=== PATIENT | female | born 1975 ===

== ENCOUNTER 2017-12-19 20:18 | Emergency (ER) | payer OTHER ==
[2017-12-19 20:29] VITALS: RESP 16; TEMP 97.9; O2SAT 99
--- NOTE | 2017-12-19 20:56 | ED PDOC ---
HPI: Chest Pain Time Seen by Provider: 12/19/17 20:20 Chief Complaint (Nursing): Chest Pain Chief Complaint (Provider): Chest Pain History Per: Patient History/Exam Limitations: no limitations Onset/Duration Of Symptoms: Hrs (x1 hour) Current Symptoms Are (Timing): Better Associated Symptoms: denies: Nausea, Dyspnea, Diaphoresis Additional Complaint(s): 42 y/o male presents to the ED complaining of sudden onset of R chest pain, radiating to the right arm x 1 hour. Patient was doing her routine in the kitchen while this happened. Report that she had a similar episode before and was seen and cleared by translator and interpreter. Denies neck pain, diaphoresis, vomiting, shortness of breath or any further medical complaints. Past Medical History Reviewed: Historical Data, Nursing Documentation, Vital Signs Vital Signs: Last Vital Signs Temp 97.9 F 12/19/17 20:24 Pulse 81 12/20/17 01:30 Resp 16 12/20/17 01:18 BP 101/66 12/20/17 01:18 Pulse Ox 99 12/20/17 01:30 - Medical History Other PMH: Vertigo - Surgical History Surgical History: No Surg Hx - Family History Family History: States: [place] - Social History Current smoker - smoking cessation education provided: No Alcohol: None Drugs: Denies - Allergies Allergies/Adverse Reactions: Allergies Allergy/AdvReac Type Severity Reaction Status Date / Time No Known Allergies Allergy Verified 12/19/17 20:29 KATRIN Risk Score for UA/NSTEMI - KATRIN Risk Score Age > 64: NO 3 or more CAD Risk Factors: NO Known CAD (Stenosis greater than 50%): NO Aspirin use in past 7 days: NO Severe Angina: NO EKG ST changes greater than 0.5mm: NO Positive Cardiac Marker: NO KATRIN Score: 0 Risk %: 5% Review of Systems ROS Statement: Except As Marked, All Systems Reviewed And Found Negative (As per HPI otherwise negative) Constitutional: Negative for: Other (diaphoresis) Cardiovascular: Positive for: Chest Pain Respiratory: Negative for: Shortness of Breath Gastrointestinal: Negative for: Vomiting Musculoskeletal: Negative for: Neck Pain Physical Exam - Reviewed Nursing Documentation Reviewed: Yes Vital Signs Reviewed: Yes - Physical Exam Appears: Positive for: Non-toxic, No Acute Distress Head Exam: Positive for: ATRAUMATIC, NORMAL INSPECTION, NORMOCEPHALIC Skin: Positive for: Normal Color, Warm, Dry Eye Exam: Positive for: EOMI, Normal appearance, PERRL ENT: Positive for: Normal ENT Inspection Neck: Positive for: Normal, Painless ROM, Supple Cardiovascular/Chest: Positive for: Regular Rate, Rhythm. Negative for: Murmur Respiratory: Positive for: Normal Breath Sounds. Negative for: Accessory Muscle Use, Respiratory Distress Gastrointestinal/Abdominal: Positive for: Normal Exam, Soft. Negative for: Tenderness Back: Positive for: Normal Inspection Extremity: Positive for: Normal ROM. Negative for: Deformity Neurologic/Psych: Positive for: Alert, Oriented (x3) - Laboratory Results Result Diagrams: 12/19/17 21:20 12/19/17 21:20 - ECG ECG: Positive for: Interpreted By Me, Viewed By Me Rate: 81 O2 Sat by Pulse Oximetry: 99 (RA) Pulse Ox Interpretation: Normal Medical Decision Making Medical Decision Making: Time: 20:49 Initial Impression: Chest pain rule out cardiac etiology Plan: CMP Troponin I CBC w/ differential D Dimer Prothrombin time Chest x-ray Toradol 30mg IV Reevaluation Time: 0000 Patient feels better and labs are normal. pt is pain free, comfortable, joking around in her room. A repeat Troponin test performed. Chest Xray preliminary readings are negative. Repeat Troponin is negative. Patient ready for discharged. Clinical Impression: Atypical Chest Pain Upon provider evaluation patient is medically stable, and requires no further treatment in the ED at this time. Patient will be discharged. Counseling was provided and all questions were answered regarding diagnosis and need for follow up with PMD. There is agreement to discharge plan. Return if symptoms persist or worsen. Scribe Attestation: Documented by Toni De La Garza and Kathy Cochran acting as scribes for Yaneth Sanders MD. Scribe Attestation: All medical record entries made by the Scribe were at my direction and personally dictated by me. I have reviewed the chart and agree that the record accurately reflects my personal performance of the history, physical exam, medical decision making, and the department course for this patient. I have also personally directed, reviewed, and agree with the discharge instructions and disposition. Disposition - Clinical Impression Clinical Impression: Atypical chest pain - Patient ED Disposition Is Patient to be Admitted: No Counseled Patient/Family Regarding: Studies Performed, Need For Followup - Disposition Referrals: [facility] [Outside] [facility] [Outside] Disposition: Routine/Home Disposition Time: 23:00 Condition: IMPROVED Additional Instructions: follow up with your primary doctor in 1-2 days for reevaluation and further management/workup return to the ED With any worsening or concerning symptoms such as chest pain and shortness of breath Instructions: Chest Pain, Chest Pain (DC) Forms: [facility] ([place]), [facility] ED School/Work Excuse
[2017-12-19 21:42] LABS: BASO # 0.1 K/uL (0.0-0.2); BASO % 1.6 % (0.0-2.0); EOS # 0.5 K/uL (0.0-0.7); EOS % 6.9 % (0.0-4.0); HEMOGLOBIN 13.1 g/dL (12.0-16.0); LYMPH # 2.2 K/uL (1.0-4.3); LYMPH % 31.9 % (20.0-40.0); MEAN CELL VOLUME 88.7 fl (81.0-99.0); MEAN CORPUSCULAR HEMOGLOBIN 30.2 pg (27.0-31.0); MEAN PLATELET VOLUME 8.3 fl (7.2-11.7); MONO # 0.6 K/uL (0.0-0.8); MONO % 8.7 % (0.0-10.0); NEUT # 3.5 K/uL (1.8-7.0); NEUT % 50.9 % (50.0-75.0); RBC 4.34 Mil/uL (3.80-5.20); RED CELL DISTRIBUTION WIDTH 13.1 % (11.5-14.5); WHITE BLOOD COUNT 6.9 K/uL (4.8-10.8)
[2017-12-19 21:53] LABS: ALB/GLOB RATIO 1.1 (1.0-2.1); ALBUMIN 4.4 g/dL (3.5-5.0); ALT/SGPT 27 U/L (9-52); AST/SGOT 23 U/L (14-36); BLOOD UREA NITROGEN 19 mg/dl (7-17); CALCIUM 10.2 mg/dL (8.4-10.2); GFR AFRICAN-AMERICAN > 60; GFR NON-AFRICAN AMERICAN > 60
[2017-12-19 22:22] LABS: INR 1.1 (0.9-1.2); PROTHROMBIN TIME 11.7 Seconds (9.8-13.1)
[2017-12-20 01:19] VITALS: BP 101/66
[2017-12-20 01:30] VITALS: PULSE 81
--- NOTE | 2017-12-20 08:55 | RAD ---
HISTORY: chest pain COMPARISON: No prior. TECHNIQUE: Chest PA and lateral FINDINGS: LUNGS: No active pulmonary disease. PLEURA: No significant pleural effusion identified. No pneumothorax apparent. CARDIOVASCULAR: Normal. OSSEOUS STRUCTURES: No significant abnormalities. VISUALIZED UPPER ABDOMEN: Normal. OTHER FINDINGS: None. IMPRESSION: No active disease.
== END 2017-12-20 01:26 | disposition home or self-care (01) ==
LOC: EDBD 20:18 → H.ER 20:18
DX: R07.89 Other chest pain (principal)
CPT/HCPCS: 71046; 80053; 81025; 84484; 85025; 85378; 85610; 99284; J1885